=== PATIENT | male | born 1960 | race Caucasian/White ===

== ENCOUNTER → 2022-06-10 14:15 | Outpatient (BNVA) | payer MEDICARE, MEDICAID, SELFPAY | PROVIDERS: Visit Provider Nurse Practitioner Family | DX: E11.9 Type 2 diabetes mellitus without complications (principal); N40.0 Benign prostatic hyperplasia without lower urinary tract symptoms; Z12.5 Encounter for screening for malignant neoplasm of prostate; M10.9 Gout, unspecified | CPT/HCPCS: 80053; 80061; 82043; 82607; 83036; 83735; 84443; 84550; 85025; G0103 ==